=== PATIENT | male | born 1960 | race Caucasian/White ===

== ENCOUNTER → 2024-02-27 09:44 | Outpatient (REF) | payer MEDICARE, OTHER, SELFPAY | LOC: RCS 09:44 | PROVIDERS: ATTENDING PHYSICIAN Internal Medicine; FAMILY PHYSICIAN Family Medicine | DX: I77.810 Thoracic aortic ectasia (principal); I44.4 Left anterior fascicular block; I35.1 Nonrheumatic aortic (valve) insufficiency; I25.10 Atherosclerotic heart disease of native coronary artery without angina pectoris | CPT/HCPCS: 93306 ==

== ENCOUNTER → 2024-07-02 15:40 | Outpatient (REF) | payer MEDICARE, OTHER, SELFPAY | LOC: RAD 15:40 | PROVIDERS: ATTENDING PHYSICIAN Family Medicine | DX: I77.810 Thoracic aortic ectasia (principal) | CPT/HCPCS: 71275; Q9967 ==

== ENCOUNTER → 2024-08-10 09:11 | Outpatient (REF) | payer MEDICARE, OTHER, SELFPAY | LOC: DHVS 09:11 | PROVIDERS: ATTENDING PHYSICIAN Surgery Vascular Surgery | DX: R29.898 Other symptoms and signs involving the musculoskeletal system (principal); Z13.6 Encounter for screening for cardiovascular disorders | CPT/HCPCS: 76770; 93925 ==

== ENCOUNTER → 2025-01-06 07:55 | Outpatient (REF) | payer MEDICARE, OTHER, SELFPAY | LOC: HWRAD 07:55 | PROVIDERS: ATTENDING PHYSICIAN Family Medicine | DX: R91.1 Solitary pulmonary nodule (principal) | CPT/HCPCS: 71250 ==

== ENCOUNTER → 2025-06-21 10:35 | Outpatient (REF) | payer MEDICARE, OTHER, SELFPAY | LOC: HWRAD 10:35 | PROVIDERS: ATTENDING PHYSICIAN Family Medicine | DX: R91.1 Solitary pulmonary nodule (principal) | CPT/HCPCS: 71250 ==

== ENCOUNTER → 2025-07-02 10:49 | Outpatient (REF) | payer MEDICARE, OTHER, SELFPAY | LOC: RCS 10:49 | PROVIDERS: ATTENDING PHYSICIAN Family Medicine | DX: I35.1 Nonrheumatic aortic (valve) insufficiency (principal) | CPT/HCPCS: 93306 ==